=== PATIENT | male | born 1950 | race Caucasian/White ===

== ENCOUNTER 2019-08-29 15:30 | Emergency (ER) | payer BC, OTHER ==
[2019-08-29 16:05] LABS: Absolute Lymphocytes (CBC) 2.5 K/uL (0.7-4.9); Basophils % 1.1 % (0-1.3); Hematocrit 38.9 % (39.6-49.0); Lymphocytes % 31.1 % (15.3-44.8); MPV 10.8 fL (7.6-11.3); RBC Red Blood Cell Count 4.25 M/uL (4.33-5.43)
[2019-08-29 16:18] LABS: ALT/SGPT 30 U/L (12-78); AST/SGOT 17 U/L (15-37); Albumin 3.5 g/dL (3.4-5.0); Alkaline Phosphatase 102 U/L (45-117); BUN Blood Urea Nitrogen 17 mg/dL (7-18); Bicarbonate 27 mmol/L (21-32); Bilirubin Direct < 0.1 mg/dL (0-0.2); Bilirubin Total 0.3 mg/dL (0.2-1.0); Glucose Level 126 mg/dL (74-106); Lipase 128 U/L (73-393); Potassium 4.3 mmol/L (3.5-5.1); Sodium Level 140 mmol/L (136-145)
--- NOTE | 2019-08-29 17:07 | RAD REPORT ---
EXAM DESCRIPTION: CT - Abdomen Pelvis Wo Contrast - 08/29/2019 4:30 pm CLINICAL HISTORY: Abdominal pain /rectal bleeding COMPARISON: None TECHNIQUE: Computed axial tomography of the abdomen and pelvis was obtained. IV and oral contrast we re not requested. All CT scans are performed using dose optimization technique as appropriate and may include automated exposure control or mA/KV adjustment according to patient size. FINDINGS: The evaluation of solid organs, vessels and bowel is limited secondary to the lack of con trast administration. A small hepatic cyst is suspected Splenic and hepatic granulomata The pancreas,, adrenals and left kidney appear grossly normal. Small low-density mass extends off the right kidney probably cyst The appendix is normal. There is no evidence of diverticulitis. The prostate gland is moderately to markedly enlarged. Small left inguinal hernia contains fat. Small umbilical hernia IMPRESSION: No acute abnormality is displayed.
[2019-08-29] MEDS ORDERED: PANTOPRAZOLE 40 MG INJ ONE ×2 (17:39→19:20)
[2019-08-29] MEDS ORDERED: NA CHLORIDE 0.9% 2,000 ML ONE (17:39)
[2019-08-29] MEDS ORDERED: WATER FOR INJ,STERILE 20 ML ONE (17:39)
[2019-08-29] MEDS ORDERED: NA CHLORIDE 0.9% 250 ML ONE ×2 (17:51→19:20)
[2019-08-29 18:04] LABS: Protime INR 1.07
[2019-08-29] MEDS ORDERED: HYDROCORTISONE SUC 100 MG INJ ONE (18:06)
[2019-08-29] MEDS ORDERED: DIPHENHYDRAMINE 50 MG/ML VIAL ONE (18:07)
[2019-08-29] MEDS ORDERED: WATER FOR INJ,STERILE 10 ML ONE (18:07)
[2019-08-29] MEDS ORDERED: ACETAMINOPHEN 325 MG TABLET ONE (18:07)
[2019-08-29] MEDS ORDERED: ONDANSETRON 4 MG/2 ML VIAL ONE (18:09)
[2019-08-29] MEDS ORDERED: METRONIDAZOLE 500mg IVPB 500 MG/100 ML BAG IV ONE (18:13)
[2019-08-29] MEDS ORDERED: CIPROFLOXACIN 400mg IV 0 MG/0 ML BAG IV ONE (18:13)
--- NOTE | 2019-08-29 18:44 | ER ---
Nurse's Notes [facility] Name: Jose Zamora Age: 69 yrs Sex: Male : 1950 Arrival Date: 08/29/2019 Time: 15:31 Bed 3 Private MD: Bharti Razo H Diagnosis: Gastrointestinal hemorrhage, unspecified Presentation: 08/29 15:32 Presenting complaint: Patient states: i ate, i felt like i was having diarrhea and i tw2 went and used it and it was red blood blood all in it, i have had a bleeding ulcer before but that blood was black tarry blood this was bright red. Transition of care: patient was not received from another setting of care. Onset of symptoms was August 29, 2019. Risk Assessment: Do you want to hurt yourself or someone else? Patient reports no desire to harm self or others. Initial Sepsis Screen: Does the patient meet any 2 criteria? No. Patient's initial sepsis screen is negative. Does the patient have a suspected source of infection? No. Patient's initial sepsis screen is negative. Care prior to arrival: None. 15:32 Method Of Arrival: Ambulatory tw2 15:32 Acuity: PARTHA 3 tw2 17:40 Acuity: PARTHA 2 sg Triage Assessment: 15:35 General: Appears in no apparent distress. well groomed, Behavior is calm, cooperative, tw2 appropriate for age. Pain: Denies pain. Historical: - Allergies: 15:35 No Known Allergies; tw2 - Home Meds: 15:35 omeprazole 40 mg Oral cpDR 1 cap once daily [Active]; arnuity inhl [Active]; Lipitor 10 tw2 mg Oral tab 1 tab once daily [Active]; glucosamine-chondroitin 158-123-10-5 mg oral tab [Active]; - PMHx: 15:35 Asthma; Ulcers; tw2 - PSHx: 15:35 None; tw2 - Immunization history:: Adult Immunizations. - Social history:: Smoking status: . - Ebola Screening: : Patient denies travel to an Ebola-affected area in the 21 days before illness onset. Screenin:58 Abuse screen: Denies threats or abuse. Denies injuries from another. Nutritional mg2 screening: No deficits noted. Tuberculosis screening: No symptoms or risk factors identified. Fall Risk IV access (20 points). Assessment: 15:56 General: Appears in no apparent distress. comfortable, Behavior is calm, cooperative. mg2 Pain: Denies pain. Neuro: Level of Consciousness is awake, alert, obeys commands, Oriented to person, place, time, situation. Cardiovascular: Capillary refill < 3 seconds Patient's skin is warm and dry. Respiratory: Airway is patent Respiratory effort is even, unlabored, Respiratory pattern is regular, symmetrical. GI: Reports rectal bleeding. : No signs and/or symptoms were reported regarding the genitourinary system. EENT: No signs and/or symptoms were reported regarding the EENT system. Derm: Skin is intact, is healthy with good turgor, Skin is pink, warm \T\ dry. normal. Musculoskeletal: Circulation, motion, and sensation intact. Capillary refill < 3 seconds. 17:03 Reassessment: Patient appears in no apparent distress at this time. Patient and/or mg2 family updated on plan of care and expected duration. Pain level reassessed. Patient is alert, oriented x 3, equal unlabored respirations, skin warm/dry/pink. 17:35 Reassessment: patient was not responding, he was cold and clammy, bleeding noted in the mg2 bottom, i did sternal rub on him and started to wake up, pulse noted. patient moved to trauma 3. 17:40 Reassessment: Pt moved to Trauma [place] 3. Dr. Ward, TONY Saldivar and other various ED staff at bedside. Patient denies pain. C/o fatigue. Pt verbalizes understanding that he must stay in bed. 17:40 General: Appears in no apparent distress. Behavior is calm, cooperative. General: warm ss blanket given for comfort.. Cardiovascular: Pulses are palpable in right radial artery and left radial artery. Respiratory: Respiratory effort is even, unlabored, Respiratory pattern is regular, symmetrical. GI: Abdomen is non-distended, large amount of dark red coagulated blood noted in patient's underwear. No external active bleeding noted at this time. Pt cleaned, placed in gown and remains on monitors. Patient currently denies diarrhea, nausea, vomiting. Derm: Skin is pale, Skin temperature is cool. 17:40 Reassessment: Patient appears in no apparent distress at this time. pt received from kam Rowe RN. 17:40 Reassessment: pt pants removed, large blood clots, golf ball sized x 4 noted to the sg jemaria de jesus, bleeding that is bright red noted, at bedside evaluating pt at this time. General: Appears ill, Behavior is calm, cooperative, quiet. Pain: Denies pain. Neuro: Level of Consciousness is awake, alert, obeys commands, Oriented to person, place, time, situation, Reports weakness. Respiratory: Airway is patent Respiratory effort is even, unlabored, Respiratory pattern is regular, symmetrical. Derm: Skin is intact, Skin is pale, Skin temperature is cool. 17:48 Reassessment: Patient verbally consents to receiving blood products with myself and ss present. Dr. Ward attempting to place central line. has signed informed consent. 17:52 Reassessment: Patient appears in no apparent distress at this time. at bedside for insertion of Central Line, pt family remains at bedside, awaiting blood product from blood bank, will continue to monitor. 18:09 Reassessment: Pt c/o nausea. Notified provider. Order given. ca1 18:55 Reassessment: blood slip x1 sent to blood bank, requesting 1 unit of blood at this time.sg 19:05 Reassessment: pt administered Blood transfusion premedications, see blood sg administration orders for documentation. 19:10 Reassessment: Patient appears in no apparent distress at this time. Toby JIMENEZ notified of sg pt VS at this time, pt remains aa\T\ox4 at this time, Toby reports he will re evaluate pt, awaiting new orders, Tyler ELDER at bedside for receiving report, blood continues to infuse as ordered, report given to Tyler ELDER. 19:11 Reassessment: checked blood with Donny ELDER, continued blood transfusion. provider ruba notified of low blood pressure, new orders received. pt A\T\O X 4, with even and unlabored respirations. resting in bed with no signs of distress noted. 19:27 General: Appears in no apparent distress. comfortable, Behavior is calm, cooperative, jd3 appropriate for age, Reports fatigue for 12-24 hours. Pain: Denies pain. Neuro: Level of Consciousness is awake, alert, obeys commands, Oriented to person, place, time, situation. Cardiovascular: Capillary refill < 3 seconds Patient's skin is warm and dry. Rhythm is regular. Respiratory: Airway is patent Respiratory effort is even, unlabored, Respiratory pattern is regular, symmetrical, Denies cough, shortness of breath. GI: Abdomen is round non-distended, Reports rectal bleeding, Patient currently denies diarrhea, vomiting. : No signs and/or symptoms were reported regarding the genitourinary system. EENT: No signs and/or symptoms were reported regarding the EENT system. Derm: Skin is intact, Skin is dry, Skin is normal, Skin temperature is cool. Musculoskeletal: Circulation, motion, and sensation intact. 19:39 Reassessment: Patient appears in no apparent distress at this time. Patient and/or sg family updated on plan of care and expected duration. Pain level reassessed. Patient is alert, oriented x 3, equal unlabored respirations, skin warm/dry/pink. Claudia ELDER received report at this time, Tyler ELDER notified, pt to be transferred for GI workup. 20:42 Reassessment: Patient appears in no apparent distress at this time. Patient and/or jd3 family updated on plan of care and expected duration. Pain level reassessed. Patient is alert, oriented x 3, equal unlabored respirations, skin warm/dry/pink. report given to EMS. first unit finishing. provider notified. provider said to hold second unit and transfer the pt to avoid delaying pt care. Patient states feeling better. Vital Signs: 15:33 BP 154 / 79; Pulse 113; Resp 16; Temp 97.6(TE); Pulse Ox 97% on R/A; Weight 91.63 kg tw2 (R); Height 5 ft. 7 in. (170.18 cm); Pain 0/10; 17:01 BP 112 / 77; Pulse 101; Resp 18; Pulse Ox 95% on R/A; mg2 17:39 BP 115 / 75; Pulse 88; Resp 15; Pulse Ox 99% on R/A; sg 17:50 BP 120 / 71; Pulse 79; Resp 17; Pulse Ox 100% on R/A; sg 18:03 BP 113 / 69; Pulse 79; Resp 17 S; Pulse Ox 97% on R/A; ca1 18:54 BP 112 / 71; Pulse 72; Resp 18; Pulse Ox 99% on R/A; Pain 0/10; sg 19:29 BP 94 / 62; Pulse 66; Resp 16 S; Pulse Ox 98% on R/A; jd3 19:47 BP 98 / 68; Pulse 66; Resp 17 S; Pulse Ox 100% on R/A; jd3 20:43 BP 127 / 90; Pulse 70; Resp 16 S; Pulse Ox 100% on R/A; jd3 15:33 Body Mass Index 31.64 (91.63 kg, 170.18 cm) tw2 ED Course: 15:31 Patient arrived in ED. mr 15:31 Bharti Razo DO is Private Physician. mr 15:33 Triage completed. tw2 15:35 Arm band placed on. tw2 15:36 Toby Raygoza PA is PHCP. [facility] 15:36 Luke Ward MD is Attending Physician. [facility] 15:40 Jae Maynard, RN is Primary Nurse. mg2 15:58 No provider procedures requiring assistance completed. Inserted saline lock: 20 gauge mg2 in right forearm, using aseptic technique. Blood collected. 15:59 Patient has correct armband on for positive identification. Pulse ox on. NIBP on. Door mg2 closed. 16:00 T\T\S collected, blood band applied to patient. Patient maintains SpO2 saturation greater jp3 than 95% on room air. 16:46 Type And Screen Sent. jp3 16:47 Basic Metabolic Panel Sent. jp3 16:47 CBC with Diff Sent. jp3 16:47 Creatinine for Radiology Sent. jp3 16:47 Hepatic Function Sent. jp3 16:47 Lipase Sent. jp3 17:40 Report received from Jae ELDER. sg 17:40 Missed attempt(s): 18 gauge in left jugular x2 by , orders to set up for sg Central Line access received, see chart. 17:41 initiated a transfer with Kari Marshall from the [facility]. eb 17:42 Missed attempt(s): 20 gauge in left hand. Bleeding controlled, band aid applied, sg catheter tip intact. 17:52 Assisted provider with central line placement. Set up central line tray. Triple lumen sg line placed in right femoral. Line placed by Luke Ward MD Placement verified by blood return, Dressed with Tegaderm, Blood was collected. Patient tolerated well. Before procedure, did Practitioner(s) obtain informed consent? Yes. Patient \T\ family education about procedure, CLABSI prevention and S/S of infection? Yes. Time-out/Briefing performed prior to start of procedure? Yes. Was handwashing/sanitizing done immediately prior to procedure? Yes. Was patient positioned to in a way to prevent air embolism? Yes. Was procedure site sterilized? Yes, with chlorhexidine. Was the site allowed to dry? Yes. Was local anesthetic and/or sedation utilized? Yes. During the procedure, did the Practitioner(s) maintain a sterile field? Yes. Were unused ports clamped during insertion? Yes. Was a 2nd qualified MD obtained after 3 unsuccessful insertion attempts? N/A. Was blood aspirated from each lumen? Yes. After the procedure, did the Practitioner(s) clean the site and apply a sterile dressing? Yes. 17:54 Consent for blood and/or blood product transfusion explained by physician, signed by ca1 spouse. 18:04 connected the GI and the Hospitalist cash applications analyst for [facility] with Toby JIMENEZ for eb patient transfer consultation. 18:22 connected the knife machine operator cash applications analyst for [facility] with Toby JIMENEZ for patient transfer eb consultation. 18:43 administrative approval given by Kari Marshall/ Patient has been accepted to [facility] bed 744/ Dr. Jurado has accepted the patient in transfer/ report to be called to [phone]. 19:15 IV is patent, is intact, with fluids infusing freely, with good blood return. jd3 20:46 Patient transferred, IV remains in place. jd3 Administered Medications: 17:44 Drug: NS 0.9% (20 ml/kg) 20 ml/kg Route: IV; Rate: 1 bolus; Site: right antecubital; sg 19:00 Follow up: Response: No adverse reaction; IV Intake: 2000ml sg 19:00 Follow up: Response: No adverse reaction; IV Status: Completed infusion jd3 17:44 Drug: ProTONIX 80 mg Route: IVP; Site: right antecubital; sg 18:29 Follow up: Response: No adverse reaction sg 18:12 Drug: Zofran 4 mg Route: IVP; Site: right femoral; sg 18:29 Follow up: Response: No adverse reaction; Nausea is decreased sg 18:14 Drug: Flagyl 500 mg Volume: 100 ml; Route: IVPB; Rate: 200 ml/hr; Infused Over: 30 ca1 mins; Site: right femoral; 18:50 Follow up: Response: No adverse reaction; IV Status: Completed infusion sg 18:55 Drug: Cipro 400 mg Volume: 200 ml; Route: IVPB; Infused Over: 60 mins; Site: right sg femoral; 19:55 Follow up: Response: No adverse reaction; IV Status: Completed infusion; IV Intake: jd3 200ml 19:15 Drug: NS 0.9% 1000 ml Route: IV; Rate: 1 bolus; Site: right femoral; jd3 20:46 Follow up: Response: No adverse reaction; IV Status: Completed infusion; IV Intake: jd3 1000ml 19:25 Drug: ProTONIX 8 mg/hr Route: IV; Rate: 25 ml/hr; Site: right femoral; sg 20:46 Follow up: Response: No adverse reaction; IV Status: Infusion continued upon transfer jd3 Intake: 18:21 IV: 2000ml (IV Fluid); Total: 2000ml. sg 19:00 IV: 2000ml; Total: 4000ml. sg 19:55 IV: 200ml; Total: 4200ml. jd3 20:46 IV: 1000ml; Total: 5200ml. jd3 Outcome: 18:44 ER care complete, transfer ordered by . [facility] 20:44 Transferred by ground EMS to [facility], Transfer form completed. jd3 X-rays sent w/ patient. 20:44 Condition: stable 20:44 Instructed on the need for transfer, Demonstrated understanding of instructions. 20:51 Patient left the ED. jd3 Signatures: Andres Hunter RN RN Toby Raygoza PA PA [facility] aKrissa Almonte mr JennyBreonna, RN RN ss Yulisa Knight RN RN tw2 Santi Blanco RN RN jd3 Kari Shannon Michele, RN RN [facility] Rainer Lee jp3 Caren Gamboa RN RN ca1 Corrections: (The following items were deleted from the chart) 18:15 18:14 Report received from Jae ELDER sg sg
--- NOTE | 2019-08-29 18:45 | EDPHYS ---
Physician Documentation [facility] Name: Jose Zamora Age: 69 yrs Sex: Male : 1950 Arrival Date: 08/29/2019 Time: 15:31 Bed 3 Private MD: Bharti Razo H ED Physician Luke Ward HPI: 08/29 16:01 This 69 yrs old Male presents to ER via Ambulatory with complaints of Rectal jmm Bleeding. 16:01 The patient presents to the emergency department with bleeding from the rectum/anus. jmm Onset: The symptoms/episode began/occurred acutely, just prior to arrival. Context: the patient has a known history of hemorrhoids. Modifying factors: The symptoms are alleviated by nothing. This is a 69 year old male with a history of ulcers that presents to the ED with rectal bleeding beginning earlier today. Patient states having a bloody bowel movement which occurred just prior to arrival. Patient was recently diagnosed with internal hemorrhoids on colonoscopy. Denies abdominal pain, denies fever. . Historical: - Allergies: 15:35 No Known Allergies; tw2 - Home Meds: 15:35 omeprazole 40 mg Oral cpDR 1 cap once daily [Active]; arnuity inhl [Active]; Lipitor 10 tw2 mg Oral tab 1 tab once daily [Active]; glucosamine-chondroitin 338-765-06-5 mg oral tab [Active]; - PMHx: 15:35 Asthma; Ulcers; tw2 - PSHx: 15:35 None; tw2 - Immunization history:: Adult Immunizations. - Social history:: Smoking status: . - Ebola Screening: : Patient denies travel to an Ebola-affected area in the 21 days before illness onset. ROS: 16:01 Constitutional: Negative for fever, chills, and weight loss, Cardiovascular: Negative jmm for chest pain, palpitations, and edema, Respiratory: Negative for shortness of breath, cough, wheezing, and pleuritic chest pain. 16:01 Abdomen/GI: Positive for rectal bleeding, Negative for abdominal pain, nausea and vomiting, diarrhea. 16:01 All other systems are negative. Exam: 16:01 Constitutional: This is a well developed, well nourished patient who is awake, alert, jmm and in no acute distress. Head/Face: atraumatic. Eyes: EOMI, no conjunctival erythema appreciated ENT: Moist Mucus Membranes Neck: Trachea midline, Supple Chest/axilla: Normal chest wall appearance and motion. Cardiovascular: Regular rate and rhythm. No edema appreciated Respiratory: Normal respirations, no respiratory distress appreciated 16:01 Back: Normal ROM Skin: General appearance color normal MS/ Extremity: Moves all extremities, no obvious deformities appreciated, no edema noted to the lower extremities Neuro: Awake and alert, normal gait Psych: Behavior is normal, Mood is normal, Patient is cooperative and pleasant 16:01 Abdomen/GI: Inspection: abdomen appears normal, Bowel sounds: normal, Palpation: abdomen is soft and non-tender, in all quadrants. Vital Signs: 15:33 BP 154 / 79; Pulse 113; Resp 16; Temp 97.6(TE); Pulse Ox 97% on R/A; Weight 91.63 kg tw2 (R); Height 5 ft. 7 in. (170.18 cm); Pain 0/10; 17:01 BP 112 / 77; Pulse 101; Resp 18; Pulse Ox 95% on R/A; mg2 17:39 BP 115 / 75; Pulse 88; Resp 15; Pulse Ox 99% on R/A; sg 17:50 BP 120 / 71; Pulse 79; Resp 17; Pulse Ox 100% on R/A; sg 18:03 BP 113 / 69; Pulse 79; Resp 17 S; Pulse Ox 97% on R/A; ca1 18:54 BP 112 / 71; Pulse 72; Resp 18; Pulse Ox 99% on R/A; Pain 0/10; sg 19:29 BP 94 / 62; Pulse 66; Resp 16 S; Pulse Ox 98% on R/A; jd3 19:47 BP 98 / 68; Pulse 66; Resp 17 S; Pulse Ox 100% on R/A; jd3 20:43 BP 127 / 90; Pulse 70; Resp 16 S; Pulse Ox 100% on R/A; jd3 15:33 Body Mass Index 31.64 (91.63 kg, 170.18 cm) tw2 Procedures: 18:07 Central Line: the site was prepped with Betadine, in sterile fashion, a triple lumen getachew catheter was inserted, in the right in 1 attempts. placement was verified, by blood return, the site was dressed with using sterile technique, the patient tolerated the procedure, well. MDM: 15:39 Patient medically screened. [facility] 18:08 Data reviewed: vital signs, nurses notes, lab test result(s), EKG, radiologic studies, [facility] CT scan, plain films. 18:42 ED course: I discussed the patient with India Sanchez whom accepted transfer. . [facility] 08/29 15:47 Order name: Basic Metabolic Panel [facility] 08/29 15:47 Order name: CBC with Diff [facility] 08/29 15:47 Order name: Creatinine for Radiology [facility] 08/29 15:47 Order name: Hepatic Function [facility] 08/29 15:47 Order name: Lipase [facility] 08/29 15:47 Order name: Type And Screen [facility] 08/29 16:07 Order name: CBC with Automated Diff; Complete Time: 16:08 [facility] 08/29 16:17 Order name: Creatinine (Radiology Only); Complete Time: 16:23 [facility] 08/29 16:18 Order name: Basic Metabolic Panel; Complete Time: 16:23 [facility] 08/29 16:18 Order name: Liver (Hepatic) Function; Complete Time: 16:23 [facility] 08/29 16:18 Order name: Lipase; Complete Time: 16:23 [facility] 08/29 16:38 Order name: Type and Screen [facility] 08/29 17:42 Order name: Ptt, Activated [facility] 08/29 17:42 Order name: PT-INR [facility] 08/29 15:47 Order name: IV Saline Lock; Complete Time: 15:55 [facility] 08/29 15:47 Order name: Labs collected and sent; Complete Time: 15:55 [facility] 08/29 15:47 Order name: CT Abd/Pelvis - IV Contrast Only [facility] 08/29 17:09 Order name: CT; Complete Time: 17:09 [facility] 08/29 17:58 Order name: PRBC [facility] 08/29 18:01 Order name: Bb Add On eb 08/29 18:06 Order name: Transfuse; Complete Time: 19:26 [facility] 08/29 18:09 Order name: Protime (+INR); Complete Time: 18:10 [facility] 08/29 18:09 Order name: PTT, Activated Partial Thromb; Complete Time: 18:10 [facility] 08/29 18:12 Order name: Consent for Blood Transfusion; Complete Time: 18:12 sg Administered Medications: 17:44 Drug: NS 0.9% (20 ml/kg) 20 ml/kg Route: IV; Rate: 1 bolus; Site: right antecubital; sg 19:00 Follow up: Response: No adverse reaction; IV Intake: 2000ml sg 19:00 Follow up: Response: No adverse reaction; IV Status: Completed infusion jd3 17:44 Drug: ProTONIX 80 mg Route: IVP; Site: right antecubital; sg 18:29 Follow up: Response: No adverse reaction sg 18:12 Drug: Zofran 4 mg Route: IVP; Site: right femoral; sg 18:29 Follow up: Response: No adverse reaction; Nausea is decreased sg 18:14 Drug: Flagyl 500 mg Volume: 100 ml; Route: IVPB; Rate: 200 ml/hr; Infused Over: 30 ca1 mins; Site: right femoral; 18:50 Follow up: Response: No adverse reaction; IV Status: Completed infusion sg 18:55 Drug: Cipro 400 mg Volume: 200 ml; Route: IVPB; Infused Over: 60 mins; Site: right sg femoral; 19:55 Follow up: Response: No adverse reaction; IV Status: Completed infusion; IV Intake: jd3 200ml 19:15 Drug: NS 0.9% 1000 ml Route: IV; Rate: 1 bolus; Site: right femoral; jd3 20:46 Follow up: Response: No adverse reaction; IV Status: Completed infusion; IV Intake: jd3 1000ml 19:25 Drug: ProTONIX 8 mg/hr Route: IV; Rate: 25 ml/hr; Site: right femoral; sg 20:46 Follow up: Response: No adverse reaction; IV Status: Infusion continued upon transfer jd3 Disposition: 18:08 Co-signature as Attending Physician, Luke Ward MD I agree with the assessment and getachew plan of care. Disposition: 08/29/19 18:44 Transfer ordered to [facility]. Diagnosis is Gastrointestinal hemorrhage, unspecified. - Reason for transfer: Higher level of care. - Accepting physician is Swathi. - Condition is Stable. - Problem is an acute exacerbation. - Symptoms are unchanged. Signatures: Dispatcher [employer] EDAndres Marroquin RN RN sg Anderson, Corey, MD MD cha Mickail, Joel, PA PA jmm Wise, Tara, RN RN tw2 Santi Blanco RN RN jd3 Caren Gamboa RN RN ca1 Corrections: (The following items were deleted from the chart) 20:51 18:44 08/29/2019 18:44 Transfer ordered to [facility]. Diagnosis is jd3 Gastrointestinal hemorrhage, unspecified. Reason for transfer: Higher level of care. Accepting physician is Swathi. Condition is Stable. Problem is an acute exacerbation. Symptoms are unchanged. cassia
[2019-08-29] MEDS ORDERED: CIPROFLOXACIN 400mg IV 400 MG/200 ML BAG IV ONE (18:47)
[2019-08-29] MEDS ORDERED: NA CHLORIDE 0.9% 1,000 ML ONE (19:20)
[2019-08-30 04:04] VITALS: O2SAT 100
[2019-08-30 04:05] VITALS: BP 127/90
[2019-08-30 04:29] VITALS: TEMP 97.8
--- NOTE | 2019-08-30 09:40 | EKG ---
Test Date: 2019-08-29 Test Time: 17:40:02 Engineer And Geologist: MEASUREMENT RESULTS: Intervals: Rate: 85 TN: 164 QRSD: 78 QT: 348 QTc: 414 Alloy: P: 59 TN: 164 QRS: 11 T: 53 INTERPRETIVE STATEMENTS: Normal sinus rhythm Normal ECG Compared to ECG 11/25/2016 20:03:35 No significant changes Electronically Signed On 08-30-19 09:39:40 FUR FLOOR WORKER by Reyes Jarvis
[2019-08-30] MEDS ORDERED: PANTOPRAZOLE INJ 80 MG in NA CHLORIDE 0.9% 250 ML IV SCH (10:00)
== END 2019-08-29 20:51 | disposition short-term general hospital (02) ==
LOC: ER 15:30
PROC: 06HT33Z Insertion of Infusion Device into Right Foot Vein, Percutaneous Approach (ICD-10-PCS; principal; 2019-08-29)
PROC: 30233N1 Transfusion of Nonautologous Red Blood Cells into Peripheral Vein, Percutaneous Approach (ICD-10-PCS; 2019-08-29)
DX: K62.5 Hemorrhage of anus and rectum (principal); J45.909 Unspecified asthma, uncomplicated
CPT/HCPCS: 96365; 96367; 96368; 93005; 85025; 80048; 36415; 86900; 86850; 85610; 86901; 80076; 85730; 83690; 74176; 96375; 99285; 36556; 36430; J1200; C9113 ×2; P9016; J7030 ×4; J1720; J2405; J0744